=== PATIENT | female | born 1990 | race Hispanic/Latino ===

== ENCOUNTER 2020-06-27 10:52 | Emergency (ER) | payer OTHER ==
[2020-06-27 11:30] LABS: Absolute Lymphocytes (CBC) 1.2 K/uL (0.7-4.9); Basophils % 0.3 % (0-1.3); Hematocrit 38.2 % (36.0-45.0); Lymphocytes % 17.4 % (15.3-44.8); MPV 9.8 fL (7.6-11.3); RBC Red Blood Cell Count 3.97 M/uL (3.86-4.86)
[2020-06-27] MEDS ORDERED: NA CHLORIDE 0.9% 1,000 ML ONE (11:30)
[2020-06-27 11:57] LABS: Urine Blood TRACE (NEG); Urine Glucose NEGATIVE (NEG); Urine Protein NEGATIVE (NEG); Urine pH 5.5 (5.0-7.0)
[2020-06-27 12:01] LABS: BUN Blood Urea Nitrogen 9 mg/dL (7-18); Bicarbonate 23 mmol/L (21-32); Glucose Level 97 mg/dL (74-106); HCG, Quantitative 42999 mIU/mL (1-3); Potassium 3.6 mmol/L (3.5-5.1); Sodium Level 136 mmol/L (136-145)
[2020-06-27] MEDS ORDERED: NA CHLORIDE 0.9% 100 ML ONE (12:02)
--- NOTE | 2020-06-27 12:25 | EDPHYS ---
Physician Documentation [facility] Name: Karen Ramires Age: 29 yrs Sex: Female : 1990 Arrival Date: 06/27/2020 Time: 10:57 Bed 8 Private MD: CATERINA Physician Eric Pope HPI: 06/27 11:40 This 29 yrs old Female presents to ER via Ambulatory with complaints of bambi Dehydration-Preg Unknown Weeks. 11:40 The patient presents to the emergency department with nausea, vomiting. Onset: The bambi symptoms/episode began/occurred 3 day(s) ago. Possible causes: . The symptoms are aggravated by food , The symptoms are alleviated by nothing. The estimated gestational age is 8 weeks. Associated signs and symptoms: Pertinent positives: nausea, vomiting. 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 - Social history:: Smoking status: Patient denies any tobacco usage or history of. Smoking status: Patient denies any tobacco usage or history of. - Family history:: not pertinent. ROS: 11:40 Constitutional: Negative for fever, chills, and weight loss, Eyes: Negative for injury, bambi pain, redness, and discharge, ENT: Negative for injury, pain, and discharge, Neck: Negative for injury, pain, and swelling, Cardiovascular: Negative for chest pain, palpitations, and edema, Respiratory: Negative for shortness of breath, cough, wheezing, and pleuritic chest pain, Back: Negative for injury and pain, : Negative for injury, bleeding, discharge, and swelling, MS/Extremity: Negative for injury and deformity, Skin: Negative for injury, rash, and discoloration, Neuro: Negative for headache, weakness, numbness, tingling, and seizure, Psych: Negative for depression, anxiety, suicide ideation, homicidal ideation, and hallucinations, Allergy/Immunology: Negative for hives, rash, and allergies, Endocrine: Negative for neck swelling, polydipsia, polyuria, polyphagia, and marked weight changes, Hematologic/Lymphatic: Negative for swollen nodes, abnormal bleeding, and unusual bruising. 11:40 Abdomen/GI: Positive for nausea and vomiting. Exam: 11:40 Constitutional: This is a well developed, well nourished patient who is awake, alert, bambi and in no acute distress. Head/Face: Normocephalic, atraumatic. Eyes: Pupils equal round and reactive to light, extra-ocular motions intact. Lids and lashes normal. Conjunctiva and sclera are non-icteric and not injected. Cornea within normal limits. Periorbital areas with no swelling, redness, or edema. ENT: Nares patent. No nasal discharge, no septal abnormalities noted. Tympanic membranes are normal and external auditory canals are clear. Oropharynx with no redness, swelling, or masses, exudates, or evidence of obstruction, uvula midline. Mucous membranes moist. Neck: Trachea midline, no thyromegaly or masses palpated, and no cervical lymphadenopathy. Supple, full range of motion without nuchal rigidity, or vertebral point tenderness. No Meningismus. Chest/axilla: Normal chest wall appearance and motion. Nontender with no deformity. No lesions are appreciated. Cardiovascular: Regular rate and rhythm with a normal S1 and S2. No gallops, murmurs, or rubs. Normal PMI, no JVD. No pulse deficits. Respiratory: Lungs have equal breath sounds bilaterally, clear to auscultation and percussion. No rales, rhonchi or wheezes noted. No increased work of breathing, no retractions or nasal flaring. Abdomen/GI: Soft, non-tender, with normal bowel sounds. No distension or tympany. No guarding or rebound. No evidence of tenderness throughout. Back: No spinal tenderness. No costovertebral tenderness. Full range of motion. Skin: Warm, dry with normal turgor. Normal color with no rashes, no lesions, and no evidence of cellulitis. MS/ Extremity: Pulses equal, no cyanosis. Neurovascular intact. Full, normal range of motion. Neuro: Awake and alert, GCS 15, oriented to person, place, time, and situation. Cranial nerves II-XII grossly intact. Motor strength 5/5 in all extremities. Sensory grossly intact. Cerebellar exam normal. Normal gait. Psych: Awake, alert, with orientation to person, place and time. Behavior, mood, and affect are within normal limits. Vital Signs: 11:04 BP 129 / 98; Pulse 69; Resp 16; Temp 98.1(TE); Pulse Ox 100% on R/A; Height 5 ft. 3 in. ss (160.02 cm); Pain 4/10; 11:13 BP 116 / 71; Pulse 101; Resp 16; Temp 98.5(TE); Pulse Ox 100% on R/A; dh3 12:24 BP 101 / 53; Pulse 91; Resp 15; Pulse Ox 99% on R/A; hb 13:16 BP 99 / 57; Pulse 81; Resp 15; Pulse Ox 99% on R/A; hb MDM: 11:05 Patient medically screened. [facility] 11:42 Differential diagnosis: gastritis, viral gastroenteritis, gastroenteritis, Data bambi reviewed: vital signs, nurses notes, lab test result(s), radiologic studies, ultrasound. Data interpreted: alarm security or surveillance monitor: rate is 101 beats/min, rhythm is regular. Counseling: I had a detailed discussion with the patient and/or guardian regarding: the historical points, exam findings, and any diagnostic results supporting the discharge/admit diagnosis, lab results, radiology results, the need for outpatient follow up, for definitive care, an OB/Gyne specialist. 06/27 11:10 Order name: Quantitative Hcg; Complete Time: 12: [facility] 06/27 11:10 Order name: Abo/rh Typing; Complete Time: 12: [facility] 06/27 11:10 Order name: Basic Metabolic Panel; Complete Time: 12: [facility] 06/27 11:10 Order name: CBC with Diff; Complete Time: 12: [facility] 06/27 11:54 Order name: Urine Dipstick--Ancillary (enter results) formerly [facility] 06/27 11:54 Order name: Urine --Ancillary (enter results) formerly [facility] 06/27 11:10 Order name: Urine Test (obtain specimen); Complete Time: : [facility] 06/27 11:10 Order name: IV Saline Lock; Complete Time: : [facility] 06/27 11:10 Order name: Labs collected and sent; Complete Time: : [facility] 06/27 11:10 Order name: NPO; Complete Time: : [facility] 06/27 11:10 Order name: US Transvaginal Ob [facility] 06/27 11:57 Order name: Urine --Ancillary [facility] 06/27 11:10 Order name: Urine Dipstick-Ancillary (obtain specimen); Complete Time: 11:21 [facility] Administered Medications: 11:21 Drug: NS 0.9% 1000 ml Route: IV; Rate: 1 bolus; Site: left antecubital; hb 12:35 Follow up: Response: No adverse reaction hb 11:47 Drug: NS 0.9% 1000 ml Route: IV; Rate: 1 bolus; Site: left antecubital; hb 13:01 Follow up: Response: No adverse reaction; IV Status: Completed infusion; IV Intake: hb 1000ml Disposition: 06/27/20 12:24 Discharged to Home. Impression: Vomiting, related conditions, unspecified, first trimester, Volume depletion. - Condition is Stable. - Discharge Instructions: Hyperemesis Gravidarum, First Trimester of , [id number], First Trimester of , Pelvic Rest. - Prescriptions for Diclegis 10- 10 mg Oral tablet,delayed release (DR/EC) - take 1 tablet by ORAL route 3 times per day and 2 tablets at bedtime; 60 tablet. Vitamin 27- 0.8 mg Oral Tablet - take 1 tablet by ORAL route once daily; 30 tablet. Zofran 4 mg Oral Tablet - take 1 tablet by ORAL route every 12 hours As needed; 20 tablet. - Medication Reconciliation Form, Thank You Letter, Antibiotic Education, Prescription Opioid Use, Work release form form. - Follow up: Private Physician; When: 2 - 3 days; Reason: Recheck today's complaints, Continuance of care, Re-evaluation by your physician. Follow up: Serg Miguel MD; When: 2 - 3 days; Reason: Recheck today's complaints, Re-evaluation by your physician. - Problem is new. - Symptoms have improved. Signatures: Dispatcher [employer] [facility] Eric Pope MD MD cha Smirch, Shelby, RN RN ss Baxter, Heather, RN RN Corrections: (The following items were deleted from the chart) 13:34 12:24 06/27/2020 12:24 Discharged to Home. Impression: Vomiting; related hb conditions, unspecified, first trimester; Volume depletion. Condition is Stable. Discharge Instructions: First Trimester of , [id number], First Trimester of , Pelvic Rest. Prescriptions for Diclegis 10-10 mg Oral tablet,delayed release (DR/EC) - take 1 tablet by ORAL route 3 times per day and 2 tablets at bedtime; 60 tablet, Vitamin 27-0.8 mg Oral Tablet - take 1 tablet by ORAL route once daily; 30 tablet, Zofran 4 mg Oral Tablet - take 1 tablet by ORAL route every 12 hours As needed; 20 tablet. and Forms are Medication Reconciliation Form, Thank You Letter, Antibiotic Education, Prescription Opioid Use. Follow up: Private Physician; When: 2 - 3 days; Reason: Recheck today's complaints, Continuance of care, Re-evaluation by your physician. Follow up: Serg Miguel; When: 2 - 3 days; Reason: Recheck today's complaints, Re-evaluation by your physician. Problem is new. Symptoms have improved. bambi
--- NOTE | 2020-06-27 12:25 | ER ---
Nurse's Notes [facility] Name: Karen Ramires Age: 29 yrs Sex: Female : 1990 Arrival Date: 06/27/2020 Time: 10:57 Bed 8 Private MD: Diagnosis: Vomiting; related conditions, unspecified, first trimester;Volume depletion Presentation: 06/27 11:04 Chief complaint: Patient states: + UPT on 06/02/20. Pt does not have an OB appointment ss until Monday, but believes she may be dehydrated. C/o N/V that began 1 week ago. LMP 01/19/21. Coronavirus screen: Client denies travel out of the [place] in the last 14 days. Ebola Screen: Patient denies exposure to infectious person. Patient denies travel to an Ebola-affected area in the 21 days before illness onset. Initial Sepsis Screen: Does the patient meet any 2 criteria? No. Patient's initial sepsis screen is negative. Does the patient have a suspected source of infection? No. Patient's initial sepsis screen is negative. Risk Assessment: Do you want to hurt yourself or someone else? Patient reports no desire to harm self or others. Onset of symptoms is unknown. 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 - Social history:: Smoking status: Patient denies any tobacco usage or history of. Smoking status: Patient denies any tobacco usage or history of. - Family history:: not pertinent. Screenin:03 Abuse screen: Denies threats or abuse. Denies injuries from another. Nutritional hb screening: No deficits noted. Tuberculosis screening: No symptoms or risk factors identified. Fall Risk None identified. Assessment: 11:10 Reassessment: Patient ambulated with steady gait to restroom to obtain urine specimen. ss 11:22 General: Appears in no apparent distress. Behavior is calm, cooperative. Pain: Denies hb pain. Neuro: Level of Consciousness is awake, alert, obeys commands, Oriented to person, place, time, situation. Cardiovascular: Capillary refill < 3 seconds Patient's skin is warm and dry. Respiratory: Respiratory effort is even, unlabored, Respiratory pattern is regular, symmetrical. GI: Reports nausea, vomiting. : No signs and/or symptoms were reported regarding the genitourinary system. EENT: No signs and/or symptoms were reported regarding the EENT system. Derm: Skin is pink, warm \T\ dry. Musculoskeletal: No signs and/or symptoms reported regarding the musculoskeletal system. 12:24 Reassessment: Patient appears in no apparent distress at this time. Patient and/or hb family updated on plan of care and expected duration. Pain level reassessed. Patient is alert, oriented x 3, equal unlabored respirations, skin warm/dry/pink. 12:42 Reassessment: Discharge ordered, awaiting US results at this time. hb 13:15 Reassessment: Patient appears in no apparent distress at this time. Patient and/or hb family updated on plan of care and expected duration. Pain level reassessed. Patient is alert, oriented x 3, equal unlabored respirations, skin warm/dry/pink. Vital Signs: 11:04 BP 129 / 98; Pulse 69; Resp 16; Temp 98.1(TE); Pulse Ox 100% on R/A; Height 5 ft. 3 in. ss (160.02 cm); Pain 4/10; 11:13 BP 116 / 71; Pulse 101; Resp 16; Temp 98.5(TE); Pulse Ox 100% on R/A; dh3 12:24 BP 101 / 53; Pulse 91; Resp 15; Pulse Ox 99% on R/A; hb 13:16 BP 99 / 57; Pulse 81; Resp 15; Pulse Ox 99% on R/A; hb ED Course: 10:57 Patient arrived in ED. ds1 11:02 Amber Pena, RN is Primary Nurse. hb 11:03 Arm band placed on. hb 11:05 Eric Pope MD is Attending Physician. bambi 11:09 Triage completed. ss 11:18 Initial lab(s) drawn, by me, sent to lab. Inserted saline lock: 22 gauge in left dh3 antecubital area, using aseptic technique. Blood collected. 11:22 Patient has correct armband on for positive identification. Bed in low position. Call hb light in reach. Side rails up X 1. 11:56 Radiology exam delayed due to test not completed at this time. sg3 12:24 Serg Miguel MD is Referral Physician. [facility] 12:39 Transvaginal Ob In Process Unspecified. EDMS Administered Medications: 11:21 Drug: NS 0.9% 1000 ml Route: IV; Rate: 1 bolus; Site: left antecubital; hb 12:35 Follow up: Response: No adverse reaction hb 11:47 Drug: NS 0.9% 1000 ml Route: IV; Rate: 1 bolus; Site: left antecubital; hb 13:01 Follow up: Response: No adverse reaction; IV Status: Completed infusion; IV Intake: hb 1000ml Intake: 13:01 IV: 1000ml; Total: 1000ml. hb Outcome: 12:24 Discharge ordered by . [facility] 13:34 Patient left the ED. hb Signatures: Dispatcher [employer] EDMS Eric Pope MD MD cha Sanford, Demi ds1 Katie Hawkins RN RN Amber Bowen RN RN Gabrielle Simms 3 Francisca King 3
--- NOTE | 2020-06-27 13:14 | RAD REPORT ---
EXAM DESCRIPTION: US - Transvaginal OB - 06/27/2020 12:39 pm CLINICAL HISTORY: ABD CRAMPING, COMPARISON: No comparisons FINDINGS: A single gestational sac is seen within the uterus. The shape of the sac is within normal limits for gestational age. Within the sac is a single pole with crown-rump length of 8 mm, cor relating to estimated gestational age of 6 weeks 6 days. Estimated date of delivery is 02/14/2021. Heart rate is 141 BPM. The placenta is not yet developed due to early gestational age. The maternal adnexa and ovaries are within normal limits. Normal Doppler blood flow was demonstrated to both ovaries. IMPRESSION: Single live early intrauterine gestation with estimated gestational age of 6 weeks 6 day s, TELMA 02/14/2021. No unusual or unexpected finding.
== END 2020-06-27 13:34 | disposition home or self-care (01) ==
LOC: ER 10:52
DX: O99.281 Endocrine, nutritional and metabolic diseases complicating pregnancy, first trimester (principal); E86.9 Volume depletion, unspecified; Z3A.01 Less than 8 weeks gestation of pregnancy
CPT/HCPCS: 85025; 80048; 36415; 86900; 81025; 86901; 84702; 81003; 76817; 96360; 99284; J7030

== ENCOUNTER 2020-07-20 14:12 | Emergency (ER) | payer OTHER ==
--- OUTSIDE RECORDS SUMMARY | 2020-07-20 14:14 | XMS REPORT | Continuity of Care Document ---
:1990 Author Organization [facility] t Address [address] [place] [address] Care Team Providers Name Role Phone UNKNOWN Primary Care Physician Unavailable [facility] Attending Clinician Unavailable Payers Payer Name Policy Type Policy Number Effective Date Expiration Date S ource Problems Condition Condition Condition Status Onset Resolution Last Treating Co mments Source Name Details Category Date Date Treatment Clinician Date Irregular Diagnosis Active 2019-11-16 Memoria menstruati 02:46:10 l on, [place] unspecifie Irregular d menstruati on, unspecifie d Active Diagnosis 11/16/2019 Milton Harvey Dizziness Diagnosis Active 2019-11-16 Memoria 02:46:10 l Har[place] Dizziness Active Diagnosis 11/16/2019 Milton Rodler Positive Diagnosis Active 2019-08-07 M emoria 02:46:07 l test Positive Jeremy n test Active Diagnosis 08/07/2019 Milton Harvey Problem Active 2019-05-31 Me moria with 03:46:56 l inconclusi Jeremy n ve viability, with single or inconclusi unspecifie ve d fetus viability, single or unspecifie d fetus Active Problem 05/31/2019 Milton Harvey Missed ab Problem Active 2019-08-07 Me moria 02:48:38 l Missed [place] ab Active Problem 0 Milton Schettler Encounter Diagnosis Active 2019-05-31 Memoria for 03:45:59 l Har[place] screening Encounter for for Streptococ cus B screening for Streptococ cus B Active Diagnosis 05/31/2019 Milton Harvey Cervical Diagnosis Active 2019-05-31 Marvin maldonadoriblossom cancer 03:45:59 l screening Cervical Her smith cancer screening Active Diagnosis 05/31/2019 Milton Harvey Encounter Diagnosis Active 2019-05-31 Memoria for 03:45:59 l screening [place]ley examinatio Encounter n for for sexually screening transmitte examinatio d disease n for sexually transmitte d disease Active Diagnosis 05/31/2019 Milton Harvey Problem Active [facility] [place] [facility] Missed Missed Problem Active [facility] [place] [facility] Allergies, Adverse Reactions, Alerts Allergy Allergy Status Severity Reaction(s) Onset Inactive Treating Comm ents Source Name Type Date Date Clinician N.K.D.A. N.K.D.A. Active Info Not 2020- Ray morgan Available 09-05 l 00:00: [place] 00 No Known DA Active U 2020-0 [facility]- [place] s 00:00: [address] No Known DA Active U 2020-0 [facility] All[facility]ie 05-02 [place] s 00:00: [address] Social History Smoking Status Start Date Stop Date Source Never smoker [facility] Medications Ordered Filled Start Stop Current Ordering Indication Dosage Frequency Signature Comments Components Source Medication Medication Date Date Medication? Clinician (SIG) Name Name Provida OB 2020-0 Yes Milton G 1 capsule Memoria 05-28 [place] l 00:00: [place] 00 Provida OB Provida OB Yes [facility] [place] [facility] Vital Signs Vital Name Observation Time Observation Value Comments Source Weight 2019-09-06 [facility] Jeremy n 15:45:00 Height 2019-09-06 [facility] Jeremy n 15:45:00 Temperature Oral 2019-09-06 97.9 F [facility] rmann (F) 15:45:00 Diastolic (mm Hg) 2019-09-06 [facility] H ermann 15:45:00 Systolic (mm Hg) 2019-09-06 [facility] rmann 15:45:00 Weight 2019-06-25 [facility] Jeremy n 20:00:00 Height 2019-06-25 [facility] Jeremy n 20:00:00 Diastolic (mm Hg) 2019-06-25 [facility] ermann 20:00:00 Systolic (mm Hg) 2019-06-25 [facility] He rmann 20:00:00 Weight 2019-06-10 [facility] Jeremy n 14:15:00 Height 2019-06-10 [facility] Jeremy n 14:15:00 Diastolic (mm Hg) 2019-06-10 [facility] H ermann 14:15:00 Systolic (mm Hg) 2019-06-10 [facility] rmann 14:15:00 BP Systolic 2019-06-06 106 mm[Hg] Location: [facility] 09:15:00 Position: [place] [facility] BP Diastolic 2019-06-06 74 mm[Hg] Location: [facility] 09:15:00 Position: [place] [facility] Height 2019-06-06 61 [in_us] [facility] 09:15:00 [place] [facility] Weight 2019-06-06 136 [lb_av] [facility] 09:15:00 [place] [facility] Body Mass Index 2019-06-06 25.7 kg/m2 [facility] Calculated 09:15:00 [place] [facility] Heart Rate 2019-06-06 83 /min [facility] 09:15:00 [place] [facility] Weight 2019-05-21 [facility] Jeremy n 19:30:00 Height 2019-05-21 [facility] Jeremy n 19:30:00 Diastolic (mm Hg) 2019-05-21 [facility] H ermann 19:30:00 Systolic (mm Hg) 2019-05-21 [facility] rmann 19:30:00 Weight 2019-05-14 [facility] Jeremy n 21:30:00 Height 2019-05-14 [facility] Jeremy n 21:30:00 Diastolic (mm Hg) 2019-05-14 [facility] H ermann 21:30:00 Systolic (mm Hg) 2019-05-14 [facility] rmann 21:30:00 Procedures Procedure Date / Time Performed Performing Clinician Sour e [QLH] CBC (INCLUDES 2019-06-06 00:00:00 [facility] DIFF/PLT) Physicians [QLH] HEMOGLOBIN A1c 2019-06-06 00:00:00 [facility] Physicians [QLH] VITAMIN D, 2019-06-06 00:00:00 [facility] 25-HYDROXY, LC/MS/MS Physicians [LH] TSH+Free T4 2019-06-06 00:00:00 [facility] Physicians [QLH] CMP W/EGFR 2019-06-06 00:00:00 [facility] Physicians [H] Drug Screen Urine 2019-06-06 00:00:00 [facility] (9 Drugs) Physicians [QL] ABO GROUP AND RH 2019-06-06 00:00:00 [facility] TYPE Physicians [QL] ANTIBODY SCREEN, 2019-06-06 00:00:00 Unive [facility] RBC W/REFL ID, TITER Physicians AND AG Encounters Start End Encounter Admission Attending Care Care Encounter Source Date/Time Date/Time Type Type Clinicians Facility Department ID 2020-06-29 2020-06-29 Outpatient Milton Rose G [id number] eClinic 08:13:00 08:13:00 G Wes PATEL 2020-06-25 2020-06-25 Outpatient Milton Rose G [id number] eClinic 11:49:00 11:49:00 Ozzie PATEL 2019-09-19 2019-09-19 Outpatient Milton Rose G [id number] eClinic 10:03:00 10:03:00 Ozzie PATEL 2019-09-06 2019-09-06 Outpatient Milton Rose G [id number] eClinic 10:45:00 10:45:00 Ozzie PATEL 2019-07-30 2019-07-30 Outpatient Milton Rose G [id number] eClinic 11:26:00 11:26:00 Ozzie PATEL 2019-06-25 2019-06-25 Outpatient Miltonfiliberto Rose G [id number] eClinic 15:00:00 15:00:00 Ozzie PATEL 2019-06-11 2019-06-11 Outpatient MHNE MHNE [id number] MHNE 05:55:00 05:55:00 2019-06-10 2019-06-10 Outpatient Miltonmariann Rose G [id number] eClinic 09:15:00 09:15:00 G Wes PATEL 2019-06-06 2019-06-06 Appointmen [facility] Women's [id number] Univers 09:40:00 09:40:00 [facility] Brigida Borrego ans 2019-06-06 2019-06-06 Outpatient Milton Rose G [id number] eClinic 09:15:00 09:15:00 G Wes PATEL 2019-05-28 2019-05-28 Outpatient Milton Rose G [id number] eClinic 09:38:00 09:38:00 G Wes PATEL 2019-05-21 2019-05-21 Outpatient Milton Rose G [id number] eClinic 13:30:00 13:30:00 G Wes PATEL 2019-05-14 2019-05-14 Outpatient Milton Rose G [id number] eClinic 15:30:00 15:30:00 G Wes PATEL 2016-05-29 2016-05-29 Emergency E [facility] MED [id number] Medical 22:07:00 22:07:00 [facility] Results Test Description Test Time Test Comments Results Result Comments Source [[facility]] CBC (INCLUDES DIFF/PLT) 2019-06-06 11:08:01 Test Item Value Reference Range Interpretation Comme nts WBC (test code = 6690-2) 6.2 {K/CMM} 3.7-10.4 RBC; Below Low Threshold (test code = 789-8) 3.84 {M/CMM} 4.20-5.40 Hgb (test code = 718-7) 12.6 g/dl 12.0-16.0 Hct (test code = 80995-1) 37.4 % 36.0-48.0 MCV (test code = 787-2) 97.3 fL 80.0-98.0 MCH; Above High Threshold (test code = 785-6) 32.8 pg 27.0-31. 0 MCHC (test code = 786-4) 33.7 g/dl 32.0-36.0 RDW (test code = 788-0) 12.3 % 11.5-14.5 Platelet (test code = 96807-8) 247 {K/CMM} 133-450 Mean Platelet Volume; Above High Threshold (test code = 10.5 fL 7.4-10.4 45167-0) [facility] Physicians[[facility]] [id number] 11:08:01 Test Item Value Reference Range Interpretation Comments Segmented Neutrophils (test code 65.5 % 45.0-75.0 = 18056-4) Monocytes (test code = 37671-1) 9.0 % 2.0-12.0 Lymphocytes (test code = 17765-9) 22.3 % 20.0-40.0 Eosinophils (test code = 64073-2) 2.8 % 0.0-4.0 Basophils (test code = 706-2) 0.4 % 0.0-1.0 Segs-Bands # (test code = 4.1 {K/CMM} 1.5-8.1 87769-8) Lymphocytes # (test code = 1.4 {K/CMM} 1.0-5.5 47291-0) Monocytes # (test code = 45310-6) 0.6 {K/CMM} 0.0-0.8 Eosinophils # (test code = 0.2 {K/CMM} 0.0-0.5 85363-8) [facility] Physicians[H] Drug Screen Urine (9 Drugs)2019-06-06 11:08:01 Test Item Value Reference Range Interpretation Comments U Amph Scr (test code = Negative Negative 3349-8) Urine Barbiturate Negative Negative Screen (test code = 3377-9) Urine Benzodiazepine Negative Negative Screen (test code = 3390-2) Urine Cannabinoid Positive Negative A Screen; Abnormal (test code = 3427-2) Urine Cocaine Screen Negative Negative (test code = 3397-7) Urine Methadone Screen Negative Negative (test code = 3773-9) Urine Opiate Screen Negative Negative (test code = 3879-4) Urine Phencyclidine Negative Negative Screen (test code = 3936-2) Urine Propoxyphene Negative Negative Screen (test code = 14224-5) Urine Drug Screen Note See Note Drugs reported as (test code = Urine Drug posi tive have not been Screen Note) confirmed by a secondmethod an d should be used for medical purpose s only. To orderconfirm ation, contact laboratory.no te: Below are cut-o ff concentrations for all urine drugs jose manuel meraz performed in e laboratory. Martín e drugs listed in the t ablemay not be included in this panel.Desc ription C ut-off concentration-- ------- ------- ----Amp hetamine 1000 ng/mLBarbiturat es 200 ng/mLBenzodiaze pines 200 ng/mLCocaine metabolites 300 ng/mLOpiate s 300 ng/mLPhencyclid ine 25 ng/mLPropoxyphe ne 300 ng/mLMarijuana metabolites 50 ng/mLMethado ne 300 ng/mLUrine alco hol 20 mg/dL [facility]] HEMOGLOBIN [id number] 11:08:01 Test Item Value Reference Range Interpretation Comments Hemoglobin A1c (test code = 4548-4) 5.0 % <=5.6 [facility]] ABO GROUP AND RH [id number] 11:08:01 Test Item Value Reference Range Interpretation Comments OP ABORh Interp (test code = OP ABORh B POS Interp) [facility]] ANTIBODY SCREEN, RBC W/REFL ID, TITER AND AG 2019-06-06 11:08:01 Test Item Value Reference Range Interpretation Comments OP ABSC Gel Interp (test code = OP Negative ABSC Gel Interp) [facility]] CMP [id number] 11:08:01 Test Item Value Reference Range Interpretation Comments Sodium Level 139 {mEq/l} 135-145 (test code = 2951-2) Potassium Level 3.9 {mEq/l} 3.5-5.1 (test code = 2823-3) Chloride Level 105 {mEq/l} 95-109 (test code = 5-0) Carbon Dioxide 26 {mEq/l} 24-32 (test code = 2027-9) AGAP (test code = 11.9 {mEq/l} 10.0-20.0 32723-7) Glucose Lvl; 113 mg/dl 70-99 Adult reference range Above High values reflect the Threshold (test clinical selvin delinesof the code = 2345-7) [place] [employer]. Creatinine Lvl 0.70 mg/dl 0.50-1.40 (test code = 2160-0) Blood Urea 8 mg/dl 7-22 Nitrogen (test code = 3094-0) BUN/Creatinine 11 6-25 Ratio (test code = 3097-3) Total Protein 6.9 g/dl 6.4-8.4 (test code = 2885-2) Albumin Lvl (test 4.0 g/dl 3.5-5.0 code = 1751-7) Globulin (test 2.9 g/dl 2.7-4.2 code = 89721-0) A/G Ratio (test 1.4 0.7-1.6 code = 1759-0) Calcium Level 9.1 mg/dl 8.5-10.5 Total (test code = 28937-8) ALT (test code = 23 u/l 0-65 1743-4) AST (test code = 12 u/l 0-37 59381-3) Bili Total (test 0.3 mg/dl 0.2-1.3 code = 1975-2) Alk Phos (test 72 u/l 39-136 The pediatric reference code = 1783-0) ranges for is test represent a CLSI-basedtrans ference of the CALIPER kristin abase of pediatric refer ence intervals to [facility] analyzer (Clinical Biochemistry 46 (2013): 4417-0162). [facility] has not internally validated these reference ranges and therefore they should be used only in e context of a thoroughcl inical assessment. eGFR (test code = 120 The eGFR i s calculated 07192-6) {ML/MIN/1.7} using the CKD-E PI formula. In mos t young, healthyindividu als the eGFR will be >9 0 mL/min/1.73m2. The eGFR declines with a ge. AneGFR of 60-89 may be normal in some population s, particularly th e elderly, forwhom the CKD -EPI formula has not been extensively shefali idated. Use of the eGFR isnot recommended in the following populations:Ind ividuals with unstable c reatinine concentrations, including patient s and those with seri ous co-morbid conditions.Lynne ents with extremes in mus teresa mass or diet.The kristin a above are obtained fr om the National Kidney Disease Education Progr am(NKDEP) which rachael allen recommends that when the eGFR is used in patientswith ex tremes of body mass index for purposes of dmitry g dosing, the eGFR should be multiplied by t he estimated BMI. [facility][] TSH+Free [id number] 11:08:01 Test Item Value Reference Range Interpretation Comments TSH (test code = 96270-6) 1.510 {uIU/ml} 0.360-3.740 T4 Free (test code = 3024-7) 1.12 ng/dl 0.76-1.46 [facility]] VITAMIN D, 25-HYDROXY, LC/MS/[id number] 11:08:01 Test Item Value Reference Range Interpretation Comments Vitamin D, 25-OH, 24.0 ng/ml 30.0-100.0 Reference range is based Total (test code on recommen dations in the = Vitamin D, EndocrineSociet y Clinical 25-OH, Total) Practice Guide line (J Clin Endocrinol Klqkv6753;96:19 11-1930) [facility]- PREG UT [id number] 22:42:00 Patient Name: BRII LEDESMA Unit No: [id number] EXAMS: CPT CODE: [id number] US PREG UT TRANSVAGINAL [id number] R16 EXAM: Pelvic ultrasound HISTORY: APPROX 10 WEEKS ABD PAIN TECHNIQUE: Grayscale, color flow and spectral Doppler transabdominal and transvaginal ultrasound images were obtained. COMPARISON: None FINDINGS: The uterus measures 7.2 x 3.8 x 4.8 cm. An intrauterine gestational sac contains a single pole with a crown-rump length of 1.6 cm. No heart motion is detected. A yolk sac is seen. The uterus is otherwise normal in appearance. The right ovary measures 2.0 x 1.6 x 1.6 cm and the left ovary measures 2.6 x 2.0 x 2.2 cm. Normal ovarian blood flow is seen bilaterally. No pelvic fluid collection.IMPRESSION: Single intrauterine at 8 weeks 0 days by crown-rump length; however, no heart motion is detected. Correlate with serial beta hCG and follow-up pelvic ultrasound as indicated. at 2242 Reported and signed by: Kyle Yanes MD CC: Mer Rosado REED CLEANER; Princess López Technologist: Olga Vivar RDMS Trnscrbd D/ (2241) [email or web address] Probe: [id number] Orig Print D/T: S: 06/04/2019 (2244) Probe: ERIK Nieto NAME: [id number] PHYS: Mer Loza [place], [place] [address] : 1990 AGE: 28 SEX: F LOC: B.ERS PHONE #: [phone] EXAM DATE: 06/04/2019 STATUS: REG ER FAX #: [phone] RAD NO: Page 1 Signed ReportHCG [id number] 21:59:00 Test Item Value Reference Range Interpretation Comments HCG SERUM (test 40314 mi-IU/ML 0-3 H HCG R ANGES DURING code = HCG) NORMAL PREGNANC YPOST LMP 3-4 WEEKS 9 - 130 M IU/ML4-5 WEEKS 75 - 2,600 MIU/ML 5-6 WEEKS 85 0 - 20,800 MIU/M L6-7 WEEKS 4,00 0 - 100,200 MIU/ ML7-12 WEEKS 11,50 0 - 289,000 MIU/ ML12-16 WEEKS 18,30 0 - 137,000 MIU/ ML16-29 WEEKS 1,40 0 - 53,000 MIU/M L 29-41 WEEKS 94 0 - 60,000 MIU/M L BASIC METABOLIC [id number] 21:43:00 Test Item Value Reference Range Interpretation Comments SODIUM (test code = 132.0 mmol/L 133-144 L NA) POTASSIUM (test code 3.6 mmol/L 3.5-5.1 N = K) CHLORIDE (test code 103 mmol/L 95-105 N = CL) CARBON DIOXIDE (test 24 mmol/L 21-32 N code = CO2) ANION GAP (test code 5.0 GAP calc 4.0-15.0 N = GAP) GLUCOSE (test code = 93 MG/DL 70-110 N GLU) BLOOD UREA NITROGEN 8 MG/DL 7-18 N (test code = BUN) CREATININE (test 0.61 MG/DL 0.55-1.30 N Results may be code = CREAT) depressed if patient is takingN-Acetylc yste ine (NAC) and Metamizole (Dipyrone). CALCIUM (test code = 8.9 MG/DL 8.5-10.1 N CA) INDEX HEMOLYSIS 1 NORMAL <10 MG 1 NORMAL (test code = Index/DL HEMINDEX) INDEX ICTERIC (test 1 NORMAL <2 MG 1 NORMAL code = ICTINDEX) Index/DL INDEX LIPEMIA (test 1 NORMAL <50 MG 1 NORMAL code = LIPINDEX) Index/DL HEPATIC FUNCTION [id number] 21:43:00 Test Item Value Reference Range Interpretation Comments TOTAL PROTEIN (test code = PROT) 7.8 G/DL 6.4-8.2 N ALBUMIN (test code = ALB) 4.0 G/DL 3.4-5.0 N BILIRUBIN TOTAL (test code = 0.29 MG/DL 0.00-1.00 N BILT) BILIRUBIN DIRECT (test code = < 0.10 MG/DL 0.00-0.30 N BILD) BILIRUBIN INDIRECT (test code = 0.29 MG/DL 0.2-1.3 N BILIND) SGOT/AST (test code = AST) 19 Unit/L 15-37 N SGPT/ALT (test code = ALT) 24 Unit/L 12-78 N ALKALINE PHOSPHATASE TOTAL (test 73 Unit/L 45-117 N code = ALKP) [id number] 21:43:00 Test Item Value Reference Range Interpretation Comments LIPASE (test code = LIP) 144 Unit/L 114-286 N BASIC METABOLIC [id number] 21:42:00 Test Item Value Reference Range Interpretation Comments SODIUM (test code = 132.0 mmol/L 133-144 L NA) POTASSIUM (test code 3.6 mmol/L 3.5-5.1 N = K) CHLORIDE (test code 103 mmol/L 95-105 N = CL) CARBON DIOXIDE (test 24 mmol/L 21-32 N code = CO2) ANION GAP (test code 5.0 GAP calc 4.0-15.0 N = GAP) GLUCOSE (test code = 93 MG/DL 70-110 N GLU) BLOOD UREA NITROGEN 8 MG/DL 7-18 N (test code = BUN) CREATININE (test 0.61 MG/DL 0.55-1.30 N Results may be code = CREAT) depressed if patient is takingN-Acetylc yste ine (NAC) and Metamizole (Dipyrone). CALCIUM (test code = 8.9 MG/DL 8.5-10.1 N CA) INDEX HEMOLYSIS 1 NORMAL <10 MG 1 NORMAL (test code = Index/DL HEMINDEX) INDEX ICTERIC (test 1 NORMAL <2 MG 1 NORMAL code = ICTINDEX) Index/DL INDEX LIPEMIA (test 1 NORMAL <50 MG 1 NORMAL code = LIPINDEX) Index/DL HEPATIC FUNCTION [id number] 21:42:00 Test Item Value Reference Range Interpretation Comments TOTAL PROTEIN (test code = PROT) G/DL 6.4-8.2 ALBUMIN (test code = ALB) 4.0 G/DL 3.4-5.0 N BILIRUBIN TOTAL (test code = MG/DL 0.00-1.00 BILT) BILIRUBIN DIRECT (test code = < 0.10 MG/DL 0.00-0.30 N BILD) BILIRUBIN INDIRECT (test code = MG/DL 0.2-1.3 BILIND) SGOT/AST (test code = AST) 19 Unit/L 15-37 N SGPT/ALT (test code = ALT) 24 Unit/L 12-78 N ALKALINE PHOSPHATASE TOTAL (test Unit/L 45-117 code = ALKP) [id number] 21:42:00 Test Item Value Reference Range Interpretation Comments LIPASE (test code = LIP) 144 Unit/L 114-286 N UA RFLX MICR CULT IF [id number] 21:36:00 Test Item Value Reference Range Interpretation Comments UA COLOR (test code = YELLOW DESCRIPT YELLOW COLU) UA APPEARANCE (test code CLEAR DESCRIPT CLEAR = APPU) UA GLUCOSE DIPSTICK (test NEGATIVE (0) mg/dL (NEG) 0 code = DGLUU) UA BILIRUBIN DIPSTICK NEGATIVE (0) mg/dL (NEG) 0 (test code = BILU) UA KETONE DIPSTICK (test 1+ (5-15 mg/dL) (NEG) 0 A code = KETU) mg/dL UA SPECIFIC GRAVITY (test 1.016 SG 1.001-1.035 code = SGU) UA BLOOD DIPSTICK (test NEGATIVE (0) mg/DL (NEG) 0 code = KEYON) UA PH DIPSTICK (test code 5.0 pH UNITS 4.6-8.0 = JEYSON) UA PROTEIN DIPSTICK (test NEGATIVE (0) mg/dL <30 (1+) code = PROU) UA UROBILINIOGEN DIPSTICK NORMAL (0) mg/dL <2.0 (1+) (test code = URO) UA NITRITE DIPSTICK (test NEGATIVE (0) SCREEN NEG code = KOREY) UA LEUKOCYTE ESTERASE 25(TR) Leuk/mcL (NEG) 0 A DIPSTICK (test code = LEUU) UA COMMENT (test code = CLEAN CATCH SPEC SpecComment COMU) Notes UA WBC (test code = WBCU) 0-3 #WBC/HPF 0-3 UA RBC (test code = RBCU) 0-3 #RBC/HPF 0-3 UA BACTERIA (test code = MANY /HPF NONE-FEW A BACU) UA SQUAMOUS CELLS (test FEW >2 /HPF NONE-SQepi code = SQU) UA MUCUS (test code = RARE /LPF NONE MUCU) UA CULTURE NEEDED? (test Crit NOTmet CULT-N/A Cult byWBC code = UACULT) Criteria Indication for culture: ABD PAINUA RFLX MICR CULT IF [id number] 21:31:00 Test Item Value Reference Range Interpretation Comments UA COLOR (test code = YELLOW DESCRIPT YELLOW COLU) UA APPEARANCE (test code CLEAR DESCRIPT CLEAR = APPU) UA GLUCOSE DIPSTICK (test NEGATIVE (0) mg/dL (NEG) 0 code = DGLUU) UA BILIRUBIN DIPSTICK NEGATIVE (0) mg/dL (NEG) 0 (test code = BILU) UA KETONE DIPSTICK (test 1+ (5-15 mg/dL) (NEG) 0 A code = KETU) mg/dL UA SPECIFIC GRAVITY (test 1.016 SG 1.001-1.035 code = SGU) UA BLOOD DIPSTICK (test NEGATIVE (0) mg/DL (NEG) 0 code = KEYON) UA PH DIPSTICK (test code 5.0 pH UNITS 4.6-8.0 = JEYSON) UA PROTEIN DIPSTICK (test NEGATIVE (0) mg/dL <30 (1+) code = PROU) UA UROBILINIOGEN DIPSTICK NORMAL (0) mg/dL <2.0 (1+) (test code = URO) UA NITRITE DIPSTICK (test NEGATIVE (0) SCREEN NEG code = KOREY) UA LEUKOCYTE ESTERASE 25(TR) Leuk/mcL (NEG) 0 A DIPSTICK (test code = LEUU) UA RBC (test code = RBCU) #RBC/HPF 0-3 Indication for culture: ABD PAINCBC W/O [id number] 21:26:00 Test Item Value Reference Range Interpretation Comments WHITE BLOOD CELL (test code = WBC) 9.4 K/mm3 4.1-12.1 N RED BLOOD CELL (test code = RBC) 3.92 M/mm3 3.8-5.5 N HEMOGLOBIN (test code = HGB) 12.8 G/DL 10.6-15.8 N HEMATOCRIT (test code = HCT) 37.2 % 31.8-47.4 N MEAN CELL VOLUME (test code = MCV) 94.9 fL 80.1-101.1 N MEAN CELL HGB (test code = MCH) 32.7 pg 25.3-35.3 N MEAN CELL HGB CONCETRATION (test 34.4 G/DL 32.7-35.1 N code = MCHC) RED CELL DISTRIBUTION WIDTH (test 11.9 % 12.2-16.4 L code = RDW) PLATELET COUNT (test code = PLT) 271 K/mm3 155-337 N MEAN PLATELET VOLUME (test code = 10.9 fL 6.8-11.2 N MPV) - US PELVIC [id number] 17:17:00 FAX: Beltran Aguilar MD Casey: [facility] St: REG FAX: Princess Laws MD [phone] Name: BRII LEDESMA FSED : 1990 Age/S: 28/F [address] [facility] Unit #: [id number] Loc: ZEE Arredondo, [id number] Phys: Beltran Aguilar MD Acct: Ricco [id number] Dis Date: Status: REG ER PHONE #: Exam Date: 05/02/2019 3987 FAX #: Reason: lower abdominal pain EXAMS: CPT CODE: [id number] US PELVIC COMPLETE [id number] EXAMINATION: - US TRANSVAGINAL NON OB, - DUP AB/PEL/SC/LTD, - US PELVIC COMPLETE. LOCATION: S17. HISTORY: Constipation, lower abdominal/RLQ pain, first trimester ultrasound, beta hCG 200. COMPARISON: None. FINDINGS: Sonographic evaluation of the pelvis was performed transabdominally through a partially distended urinary bladder and transvaginally utilizing grayscale, pulse Doppler and color flow imaging. The uterus appears unremarkable in echotexture and measures 7.8 x 3.3 x 3.7 cm. The endometrial stripe measures 25 mm in thickness. The right ovary measures 2.2 x 1.3 x 1.8 cm and appears unremarkable. The left ovary measures 3.5 x 2.3 x 2.4 cm and demonstrates 1.3 cm follicular cyst within it. Arterial and venous flow is noted within the bilateral ovaries. Small free fluid is identified in the cul-de-sac. IMPRESSION: Nonvisualization of IUP. Recommend short-term follow-up with sonography and repeat beta hCG given provided clinical history. 1.3 cm follicular cyst within left ovary with small pelvic free fluid. at 1717 Reported and signed by: Jez Sharif MD CC: Beltran Aguilar MD; Princess López MD Technologist: Kristine Alegria Trnscrd Date/Time/By: 05/02/2019 (988) : By: [email or web address] PAGE 1 Signed Report FAX: Beltran Aguilar MD Casey: [facility] St: REG FAX: Princess Laws MD [phone] Name: BRII LEDESMA FSED : 1990 Age/S: 28/F [address] [facility] Unit #: [id number] Loc: [place] [address] Phys: Beltran Aguilar MD Acct: [id number] Dis Date: Status: REG ER PHONE #: Exam Date: 05/02/2019 1716 FAX #: Reason: lower abdominal pain EXAMS: CPT CODE: [id number] US PELVICCOMPLETE [id number] <Continued> Orig Print D/T: S: 05/02/2019(9475) PAGE 2Signed Report- DUP AB/PEL/SC/[id number] 17:17:00 FAX: Beltran Aguilar MD Casey: [facility] St: REG FAX: Princess Laws MD [phone] Name: BRII LEDESMA FSED : 1990 Age/S: 28/F [address] [facility] Unit #: [id number] Loc: RiccoJose AntonioSMITH [place], [id number] Phys: Beltran Aguilar MD Acct: C [id number] Dis Date: Status: REG ER PHONE #: Exam Date: 05/02/20197 FAX #: Reason: SEE REASON ON US PREG 1ST TRMTR EXAMS: CPT CODE: [id number] DUP AB/PEL/SC/LTD 02282 EXAMINATION: - US TRANSVAGINAL NON OB, - DUP AB/PEL/SC/LTD, - US PELVIC COMPLETE. LOCATION: S17. HISTORY: Constipation, lower abdominal/RLQ pain, first trimester ultrasound, beta hCG 200. COMPARISON: None. FINDINGS: Sonographic evaluation of the pelvis was performed transabdominally through a partially distended urinary bladder and transvaginally utilizing grayscale, pulse Doppler and color flow imaging. The uterus appears unremarkable in echotexture and measures 7.8 x 3.3 x 3.7 cm. The endometrial stripe measures 25 mm in thickness. The right ovary measures 2.2 x 1.3 x 1.8 cm and appears unremarkable. The left ovary measures 3.5 x 2.3 x 2.4 cm and demonstrates 1.3 cm follicular cyst within it. Arterial and venous flow is noted within the bilateral ovaries. Small free fluid is identified in the cul-de-sac. IMPRESSION: Nonvisualization of IUP. Recommend short-term follow-up with sonography and repeat beta hCG given provided clinical history. 1.3 cm follicular cyst within left ovary with small pelvic free fluid. at 1717 Reported and signed by: Jez Sharif MD CC: Beltran Aguilar MD; Princess López MD Technologist: Kristine Alegria [facility] Date/Time/By: 05/02/2019 (171) : By: [email or web address] PAGE 1 Signed Report FAX: Beltran Aguilar MD Casey: [facility] St: REG FAX: Princess Laws MD [phone] Name: BRII LEDESMA FSED : 1990 Age/S: 28/F [address] [facility] Unit #: [id number] Loc: [place] [address] Phys: Beltran Aguilar MD Acct: [id number] Dis Date: Status: REG ER PHONE #: Exam Date: 05/02/2019 1715 FAX #: Reason: SEE REASON ON US PREG 1ST TRMTR EXAMS: CPT CODE: [id number] DUP AB/PEL/SC/LTD 35475 <Continued> Orig Print D/T: S: 05/02/2019(1993) PAGE 2Signed Report- US TRANSVAGINAL NON [id number] 17:17:00 FAX: Beltran Aguilar MD Casey: [facility] St: [facility] FAX: Princess Laws MD [phone] Name: BRII LEDESMA FSED : 1990 Age/S: 28/F [address] [facility] Unit #: [id number] Loc: PernellSMITH [place], [id number] Phys: Beltran Aguilar MD Acct: C [id number] Dis Date: Status: REG ER PHONE #: Exam Date: 05/02/2019 1714 FAX #: Reason: SEE REASON ON US PREG 1ST TRMTR EXAMS: CPT CODE: [id number] [place] [address] EXAMINATION: - US TRANSVAGINAL NON OB, - DUP AB/PEL/SC/LTD, - US PELVIC COMPLETE. LOCATION: S17. HISTORY: Constipation, lower abdominal/RLQ pain, first trimester ultrasound, beta hCG 200. COMPARISON: None. FINDINGS: Sonographic evaluation of the pelvis was performed transabdominally through a partially distended urinary bladder and transvaginally utilizing grayscale, pulse Doppler and color flow imaging. The uterus appears unremarkable in echotexture and measures 7.8 x 3.3 x 3.7 cm. The endometrial stripe measures 25 mm in thickness. The right ovary measures 2.2 x 1.3 x 1.8 cm and appears unremarkable. The left ovary measures 3.5 x 2.3 x 2.4 cm and demonstrates 1.3 cm follicular cyst within it. Arterial and venous flow is noted within the bilateral ovaries. Small free fluid is identified in the cul-de-sac. IMPRESSION: Nonvisualization of IUP. Recommend short-term follow-up with sonography and repeat beta hCG given provided clinical history. 1.3 cm follicular cyst within left ovary with small pelvic free fluid. at 1717 Reported and signed by: Jez Sharif MD CC: Beltran Aguilar MD; Princess López MD Technologist: Kristine Alegria; S#: [id number] Trnscrd Date/Time/By: 05/02/2019 (7277) : By: [email or web address] PAGE 1 Signed Report FAX: Beltran Aguilar MD Casey: [facility] St: REG FAX: Princess Laws MD [phone] Name: BALTAZARBRII FSED : 1990 Age/S: 28/F [address] [facility] Unit #: [id number] Loc: [place] [address] Phys: Beltran Aguilar MD Acct: [id number] Dis Date: Status: REG ER PHONE #: Exam Date: 05/02/2019 1710 FAX #: Reason: SEE REASON ON US PREG 1ST TRMTR EXAMS: CPT CODE: [id number] [place] [address] <Continued> Orig Print D/T: S: 05/02/2019(8398) PAGE 2Signed ReportHCG [id number] 16:52:00 Test Item Value Reference Range Interpretation Comments HCG BLOOD (test 207 mIU/mL 1-3 H Gestational Age code = HCG) hCG in mIU/mL 0 .2-week 5-50 1-2 weeks 50 -500 2-3 weeks 100-5,000 3-4 w eeks 500-10, 000 4-5 weeks 1,00 0-50,000 5-6 weeks 10,000-100,000 6-8 weeks 15,000-200,000 2-3 months 10,000-100,000 A test result that is inconsistent wi th the clinical pictur eand patient history should be interpreted wit h caution. This test is no t intended for use as a becerra rrogate marker for aidi ng in the diagnosis of mo nitoring the treatment o f cancer patients COMPREHENSIVE METABOLIC [id number] 16:26:00 Test Item Value Reference Range Interpretation Comments SODIUM (test code = 138 MMOL/L 135-147 N NA) POTASSIUM (test code 3.7 MMOL/L 3.6-5.2 N = K) CHLORIDE (test code = 100 MMOL/L 98-108 N CL) CARBON DIOXIDE (test 25 mmol/L 21-32 N code = CO2) GLUCOSE (test code = 93 mg/dL 70-110 N GLU) BLOOD UREA NITROGEN 10 MG/DL 6-21 N (test code = BUN) GLOMERULAR FILTRATION 108 >60 The es timated RATE (test code = glomerular filtration GFR) rate is compute d usingpatient ra ce, age (>18), sex, and serum creatinine. If anyof the needed data elements are mi ssing the Laboratory cannot compute an griselda mation of the glomerul ar filtration rate . CREATININE (test code 0.7 mg/dL 0.6-1.3 N = CREAT) TOTAL PROTEIN (test 8.2 g/dL 6.0-8.2 N code = PROT) ALBUMIN (test code = 4.1 G/DL 3.7-5.5 N ALB) CALCIUM (test code = 9.4 mg/dL 8.7-10.5 N CA) BILIRUBIN TOTAL (test 0.70 mg/dL 0.0-1.0 N code = BILT) SGOT/AST (test code = 14 UNITS/L 10-37 N AST) SGPT/ALT (test code = 22 UNITS/L 12-78 N ALT) ALKALINE PHOSPHATASE 79 UNITS/L 46-116 N (test code = ALKP) [id number] 16:26:00 Test Item Value Reference Range Interpretation Comments AMYLASE (test code = LISA) 38 UNITS/L 25-115 N [id number] 16:26:00 Test Item Value Reference Range Interpretation Comments LIPASE (test code = LIP) 189 UNITS/L 73-393 N URINALYSIS [id number] 16:26:00 Test Item Value Reference Range Interpretation Comments UA COLOR (test code = COLU) YELLOW YELLOW UA APPEARANCE (test code = CLEAR CLEAR APPU) UA GLUCOSE DIPSTICK (test code NEGATIVE MG/DL NEGATIVE = DGLUU) UA BILIRUBIN DIPSTICK (test NEGATIVE NEGATIVE code = BILU) UA KETONE DIPSTICK (test code 40 (2+) MG/DL NEGATIVE A = KETU) UA SPECIFIC GRAVITY (test code >=1.030 1.000-1.030 A = SGU) UA BLOOD DIPSTICK (test code = TRACE NEGATIVE A KEYON) UA PH DIPSTICK (test code = 6.0 4.5-8.5 JEYSON) UA PROTEIN DIPSTICK (test code NEGATIVE MG/DL NEGATIVE = PROU) UA UROBILINOGEN DIPSTICK (test 0.2 EU/dL <=1.0 code = URO) UA NITRITE DIPSTICK (test code NEGATIVE NEGATIVE = KOREY) UA LEUKOCYTE ESTERASE DIPSTICK NEGATIVE NEGATIVE (test code = LEUU) UA WBC (test code = WBCU) 0-3 /HPF 0-3 UA RBC (test code = RBCU) 0-3 /HPF 0-3 UA EPITHELIAL CELLS (test code MODERATE /LPF NONE-FEW A = EPIU) UA BACTERIA (test code = BACU) 1+ /HPF NEGATIVE A UA MUCUS (test code = MUCU) 2+ /LPF NONE SEEN UR HCG [id number] 16:26:00 Test Item Value Reference Range Interpretation Comments UR HCG QUAL (test code = HCGQLU) POSITIVE NEGATIVE URINALYSIS [id number] 16:23:00 Test Item Value Reference Range Interpretation Comments UA COLOR (test code = COLU) YELLOW YELLOW UA APPEARANCE (test code = CLEAR CLEAR APPU) UA GLUCOSE DIPSTICK (test code NEGATIVE MG/DL NEGATIVE = DGLUU) UA BILIRUBIN DIPSTICK (test NEGATIVE NEGATIVE code = BILU) UA KETONE DIPSTICK (test code 40 (2+) MG/DL NEGATIVE A = KETU) UA SPECIFIC GRAVITY (test code >=1.030 1.000-1.030 A = SGU) UA BLOOD DIPSTICK (test code = TRACE NEGATIVE A KEYON) UA PH DIPSTICK (test code = 6.0 4.5-8.5 JEYSON) UA PROTEIN DIPSTICK (test code NEGATIVE MG/DL NEGATIVE = PROU) UA UROBILINOGEN DIPSTICK (test 0.2 EU/dL <=1.0 code = URO) UA NITRITE DIPSTICK (test code NEGATIVE NEGATIVE = KOREY) UA LEUKOCYTE ESTERASE DIPSTICK NEGATIVE NEGATIVE (test code = LEUU) UA WBC (test code = WBCU) /HPF 0-3 UA RBC (test code = RBCU) /HPF 0-3 UA EPITHELIAL CELLS (test code /LPF NONE-FEW = EPIU) UA BACTERIA (test code = BACU) /HPF NEGATIVE UR HCG [id number] 16:23:00 Test Item Value Reference Range Interpretation Comments UR HCG QUAL (test code = HCGQLU) POSITIVE NEGATIVE COMPREHENSIVE METABOLIC [id number] 16:20:00 Test Item Value Reference Range Interpretation Comments SODIUM (test code = NA) 138 MMOL/L 135-147 N POTASSIUM (test code = K) 3.7 MMOL/L 3.6-5.2 N CHLORIDE (test code = CL) 100 MMOL/L 98-108 N CARBON DIOXIDE (test code = CO2) 25 mmol/L 21-32 N GLUCOSE (test code = GLU) 93 mg/dL 70-110 N BLOOD UREA NITROGEN (test code = MG/DL 6-21 BUN) GLOMERULAR FILTRATION RATE (test >60 code = GFR) CREATININE (test code = CREAT) mg/dL 0.6-1.3 TOTAL PROTEIN (test code = PROT) g/dL 6.0-8.2 ALBUMIN (test code = ALB) G/DL 3.7-5.5 CALCIUM (test code = CA) mg/dL 8.7-10.5 BILIRUBIN TOTAL (test code = BILT) mg/dL 0.0-1.0 SGOT/AST (test code = AST) UNITS/L 10-37 SGPT/ALT (test code = ALT) UNITS/L 12-78 ALKALINE PHOSPHATASE (test code = UNITS/L 46-116 ALKP) [id number] 16:20:00 Test Item Value Reference Range Interpretation Comments AMYLASE (test code = LISA) UNITS/L 25-115 [id number] 16:20:00 Test Item Value Reference Range Interpretation Comments LIPASE (test code = LIP) UNITS/L 73-393 URINALYSIS [id number] 16:17:00 Test Item Value Reference Range Interpretation Comments UA COLOR (test code = COLU) YELLOW YELLOW UA APPEARANCE (test code = CLEAR CLEAR APPU) UA GLUCOSE DIPSTICK (test code NEGATIVE MG/DL NEGATIVE = DGLUU) UA BILIRUBIN DIPSTICK (test NEGATIVE NEGATIVE code = BILU) UA KETONE DIPSTICK (test code 40 (2+) MG/DL NEGATIVE A = KETU) UA SPECIFIC GRAVITY (test code >=1.030 1.000-1.030 A = SGU) UA BLOOD DIPSTICK (test code = TRACE NEGATIVE A KEYON) UA PH DIPSTICK (test code = 6.0 4.5-8.5 JEYSON) UA PROTEIN DIPSTICK (test code NEGATIVE MG/DL NEGATIVE = PROU) UA UROBILINOGEN DIPSTICK (test 0.2 EU/dL <=1.0 code = URO) UA NITRITE DIPSTICK (test code NEGATIVE NEGATIVE = KOREY) UA LEUKOCYTE ESTERASE DIPSTICK NEGATIVE NEGATIVE (test code = LEUU) UA WBC (test code = WBCU) /HPF 0-3 UA RBC (test code = RBCU) /HPF 0-3 UA EPITHELIAL CELLS (test code /LPF NONE-FEW = EPIU) UA BACTERIA (test code = BACU) /HPF NEGATIVE UR HCG [id number] 16:17:00 Test Item Value Reference Range Interpretation Comments UR HCG QUAL (test code = HCGQLU) NEGATIVE CBC W/AUTO [id number] 16:12:00 Test Item Value Reference Range Interpretation Comments WHITE BLOOD CELL (test code = 6.5 x10 3/uL 5.0-12.0 N WBC) RED BLOOD CELL (test code = 4.19 x10 6/uL 4.20-5.40 L RBC) HEMOGLOBIN (test code = HGB) 13.5 g/dL 12.0-16.0 N HEMATOCRIT (test code = HCT) 40.1 % 36.0-46.0 N MEAN CELL VOLUME (test code = 96 fL 81-99 N MCV) MEAN CELL HGB (test code = MCH) 32.2 pg 27-31 H MEAN CELL HGB CONCENTRATION 33.7 g/dL 33-37 N (test code = MCHC) RED CELL DISTRIBUTION WIDTH 11.7 % 11.5-15.5 N (test code = RDW) PLATELET COUNT (test code = 297 x10 3/uL 130-400 N PLT) MEAN PLATELET VOLUME (test code 10.8 fL 9.4-16.4 N = MPV) NEUTROPHIL % (test code = NT%) 65.2 % 43-65 H IMMATURE GRANULOCYTE % (test 0.2 % 0.0-2.0 N code = IG%) LYMPHOCYTE % (test code = LY%) 23.3 % 20.5-45.5 N MONOCYTE % (test code = MO%) 8.0 % 5.5-11.7 N EOSINOPHIL % (test code = EO%) 2.8 % 0.9-2.9 N BASOPHIL % (test code = BA%) 0.5 % 0.2-1.0 N NEUTROPHIL # (test code = NT#) 4.23 x10 3/uL 2.2-4.8 N IMMATURE GRANULOCYTE # (test 0.01 x10 3/uL 0-0.03 N code = IG#) LYMPHOCYTE # (test code = LY#) 1.51 x10 3/uL 1.3-2.9 N MONOCYTE # (test code = MO#) 0.52 x10 3/uL 0.3-0.8 N EOSINOPHIL # (test code = EO#) 0.18 x10 3/uL 0.0-0.2 N BASOPHIL # (test code = BA#) 0.03 x10 3/uL 0.0-0.1 N
[2020-07-20 15:36] LABS: Urine Blood 2+ (NEG); Urine Glucose NEGATIVE (NEG); Urine Protein 1+ (NEG); Urine Specific Gravity >1.030 (1.005-1.030)
[2020-07-20] MEDS ORDERED: METOCLOPRAMIDE 10 MG/2mL INJ ONE (17:15)
[2020-07-20] MEDS ORDERED: Ringers Lactate 1,000 ML IV ONE (17:15)
[2020-07-20 17:22] LABS: Absolute Lymphocytes (CBC) 1.4 K/uL (0.7-4.9); Basophils % 0.5 % (0-1.3); Hematocrit 42.5 % (36.0-45.0); Lymphocytes % 14.7 % (15.3-44.8); MPV 10.2 fL (7.6-11.3); RBC Red Blood Cell Count 4.43 M/uL (3.86-4.86)
[2020-07-20 17:26] LABS: Urine Bacteria <20 /HPF (<20); Urine RBC <5 /HPF (NONE SEEN)
[2020-07-20 17:27] LABS: Calcium Oxalate Crystals- Ur PRESENT (NONE SEEN); Urine Mucus 2+ /HPF (NONE SEEN)
[2020-07-20 17:55] LABS: BUN Blood Urea Nitrogen 8 mg/dL (7-18); Bicarbonate 24 mmol/L (21-32); Glucose Level 86 mg/dL (74-106); HCG, Quantitative 133879 mIU/mL (1-3); Potassium 3.6 mmol/L (3.5-5.1); Sodium Level 136 mmol/L (136-145)
--- NOTE | 2020-07-20 18:03 | RAD REPORT ---
EXAM DESCRIPTION: US - OB Limited - 07/20/2020 5:52 pm CLINICAL HISTORY: with pelvic pain COMPARISON: June 2020 FINDINGS: The uterus measures 9 x 6 5 centimeters. A normal appearing gestational sac is present wi thin the endometrium. Within this is a yolk sac and pole with a crown-rump length 3.8 centimete rs. Cardiac activity 160 beats per minute The right ovary is normal size echotexture. Left ovary was not seen secondary overlying bowel gas. . Right and left adnexa unremarkable No significant free fluid is seen. IMPRESSION: Single live intrauterine with an estimated gestational age 10 weeks 3 days ED D 02/13/2020 If a survey is desired it should performed in approximately 8 weeks
--- NOTE | 2020-07-20 18:17 | EDPHYS ---
Physician Documentation [facility] Name: Karen Ramires Age: 29 yrs Sex: Female : 1990 Arrival Date: 07/20/2020 Time: 14:15 Bed 15 Private MD: ED Physician Deangelo Garcia HPI: 07/20 17:12 This 29 yrs old Female presents to ER via Ambulatory with complaints of 10 Wks jr8 Preg - Dark Discharge. 17:12 Patient stated that she has had n/v for 4 days now despite her zofran and promethazine jr8 at home. Stated that yesterday started with brown discharge and lower abdominal cramping as well. Denies spotting or bleeding . Severity of symptoms: At their worst the symptoms were moderate in the emergency department the symptoms are unchanged. The patient has not experienced similar symptoms in the past. The patient has not recently seen a physician. Historical: - Allergies: 14:47 No Known Allergies; ll1 - PMHx: 14:47 None; ll1 - PSHx: 14:47 D \T\ C; ll1 - Immunization history:: Flu vaccine is not up to date. - Social history:: Smoking status: Patient denies any tobacco usage or history of. ROS: 17:12 Eyes: Negative for injury, pain, redness, and discharge, ENT: Negative for injury, jr8 pain, and discharge, Neck: Negative for injury, pain, and swelling, Cardiovascular: Negative for chest pain, palpitations, and edema, Respiratory: Negative for shortness of breath, cough, wheezing, and pleuritic chest pain, Back: Negative for injury and pain, MS/Extremity: Negative for injury and deformity, Skin: Negative for injury, rash, and discoloration, Neuro: Negative for headache, weakness, numbness, tingling, and seizure. 17:12 Abdomen/GI: Positive for nausea and vomiting, abdominal cramps. 17:12 : Positive for vaginal discharge, Negative for urinary symptoms, pelvic pain, flank pain, burning with urination. Exam: 17:12 Constitutional: This is a well developed, well nourished patient who is awake, alert, jr8 and in no acute distress. ENT: Nares patent. No nasal discharge, no septal abnormalities noted. Tympanic membranes are normal and external auditory canals are clear. Oropharynx with no redness, swelling, or masses, exudates, or evidence of obstruction, uvula midline. Mucous membranes moist. Cardiovascular: Regular rate and rhythm with a normal S1 and S2. No gallops, murmurs, or rubs. Normal PMI, no JVD. No pulse deficits. Respiratory: Lungs have equal breath sounds bilaterally, clear to auscultation and percussion. No rales, rhonchi or wheezes noted. No increased work of breathing, no retractions or nasal flaring. Abdomen/GI: Soft, non-tender, with normal bowel sounds. No distension or tympany. No guarding or rebound. No evidence of tenderness throughout. Back: No spinal tenderness. No costovertebral tenderness. Full range of motion. Skin: Warm, dry with normal turgor. Normal color with no rashes, no lesions, and no evidence of cellulitis. MS/ Extremity: Pulses equal, no cyanosis. Neurovascular intact. Full, normal range of motion. Neuro: Awake and alert, GCS 15, oriented to person, place, time, and situation. Cranial nerves II-XII grossly intact. Motor strength 5/5 in all extremities. Sensory grossly intact. Cerebellar exam normal. Normal gait. Vital Signs: 14:44 BP 100 / 68; Pulse 85; Resp 16; Temp 97.3; Pulse Ox 100% ; Weight 54.88 kg; Height 5 ll1 ft. 2 in. (157.48 cm); Pain 0/10; 18:00 BP 101 / 64; Pulse 89; Resp 15 S; Pulse Ox 100% on R/A; jl7 14:44 Body Mass Index 22.13 (54.88 kg, 157.48 cm) ll1 MDM: 16:41 Patient medically screened. jr8 18:15 Data reviewed: vital signs, nurses notes, lab test result(s), radiologic studies, jr8 ultrasound. Data interpreted: Pulse oximetry: on room air is 100 %. Interpretation: normal. Counseling: I had a detailed discussion with the patient and/or guardian regarding: the historical points, exam findings, and any diagnostic results supporting the discharge/admit diagnosis, lab results, radiology results, the need for outpatient follow up, an OB/Gyne specialist, to return to the emergency department if symptoms worsen or persist or if there are any questions or concerns that arise at home. Response to treatment: the patient's symptoms have markedly improved after treatment, patient is well hydrated. 07/20 15:12 Order name: Urine Dipstick--Ancillary (enter results); Complete Time: 16:41 bd 07/20 15:12 Order name: Urine --Ancillary (enter results); Complete Time: 16:41 bd 07/20 16:50 Order name: Urine Microscopic Only [facility] 07/20 16:50 Order name: Quantitative Hcg [facility] 07/20 16:50 Order name: Abo/rh Typing [facility] 07/20 16:50 Order name: Basic Metabolic Panel [facility] 07/20 16:50 Order name: IV; Complete Time: 17:22 [facility] 07/20 16:50 Order name: CBC with Diff; Complete Time: 17:35 [facility] 07/20 16:50 Order name: OB Limited US; Complete Time: 18:19 [facility] 07/20 16:51 Order name: Urine Microscopic Only; Complete Time: 17:35 EDMS 07/20 16:51 Order name: HCG, Quantitative; Complete Time: 17:56 EDMS 07/20 16:51 Order name: Basic Metabolic Panel; Complete Time: 17:56 EDTX 07/20 16:50 Order name: Labs collected and sent; Complete Time: 17:22 [facility] 07/20 16:50 Order name: NPO; Complete Time: 17:22 [facility] 07/20 16:50 Order name: Urine Dipstick-Ancillary (obtain specimen); Complete Time: 17:22 [facility] Administered Medications: 17:00 Drug: Ringers - Lactated Ringers Solution 1000 ml Route: IV; Rate: bolus; Site: right jl7 antecubital; 18:11 Follow up: Response: No adverse reaction; IV Status: Completed infusion; IV Intake: jl7 1000ml 17:01 Drug: Reglan 10 mg Route: IVP; Site: right antecubital; jl7 18:12 Follow up: Response: No adverse reaction; Nausea is decreased jl7 Disposition: 18:36 Co-signature as Attending Physician, Deangelo Garcia MD. rn Disposition: 07/20/20 18:16 Discharged to Home. Impression: 10 weeks gestation of , Nausea and vomiting. - Condition is Stable. - Discharge Instructions: Nausea, Adult. - Prescriptions for Reglan 10 mg Oral Tablet - take 1 tablet by ORAL route every 6 hours As needed; 30 tablet. - Medication Reconciliation Form, Thank You Letter, Antibiotic Education, Prescription Opioid Use form. - Follow up: Private Physician; When: 1 week; Reason: Recheck today's complaints, Continuance of care, Re-evaluation by your physician. - Problem is new. - Symptoms have improved. Signatures: Dispatcher [employer] EDMS Deangelo Garcia MD MD rn Roszak, Josh, PA PA jr8 Prerna Hines RN RN jl7 Jeremy Lerma RN RN ll1 Corrections: (The following items were deleted from the chart) 18:30 18:16 07/20/2020 18:16 Discharged to Home. Impression: 10 weeks gestation of ; jl7 Nausea and vomiting. Condition is Stable. Forms are Medication Reconciliation Form, Thank You Letter, Antibiotic Education, Prescription Opioid Use. Follow up: Private Physician; When: 1 week; Reason: Recheck today's complaints, Continuance of care, Re-evaluation by your physician. Problem is new. Symptoms have improved. jr8
--- NOTE | 2020-07-20 18:17 | ER ---
Nurse's Notes [facility] Name: Karen Ramires Age: 29 yrs Sex: Female : 1990 Arrival Date: 07/20/2020 Time: 14:15 Bed 15 Private MD: Diagnosis: 10 weeks gestation of ;Nausea and vomiting Presentation: 07/20 14:44 Chief complaint: Patient states: Approximately 10 weeks . G2, P0. 1. Has had ll1 N/V for 3 days. 2. Brown vaginal discharge for 1 day. Cramping last night, better now. Coronavirus screen: Client denies travel out of the [place] in the last 14 days. At this time, the client does not indicate any symptoms associated with coronavirus-19. Ebola Screen: Patient denies travel to an Ebola-affected area in the 21 days before illness onset. Initial Sepsis Screen: Does the patient meet any 2 criteria? No. Patient's initial sepsis screen is negative. Does the patient have a suspected source of infection? Yes: Other: vag discharge. Risk Assessment: Do you want to hurt yourself or someone else? Patient reports no desire to harm self or others. Onset of symptoms was July 18, 2020. 14:44 Method Of Arrival: Ambulatory ll1 14:44 Acuity: FELICITA 3 ll1 Historical: - Allergies: 14:47 No Known Allergies; ll1 - PMHx: 14:47 None; ll1 - PSHx: 14:47 D \T\ C; ll1 - Immunization history:: Flu vaccine is not up to date. - Social history:: Smoking status: Patient denies any tobacco usage or history of. Screenin:00 Abuse screen: Denies threats or abuse. Denies injuries from another. Nutritional jl7 screening: No deficits noted. Tuberculosis screening: No symptoms or risk factors identified. Fall Risk IV access (20 points). Total Palumbo Fall Scale indicates No Risk (0-24 pts). Assessment: 16:30 General: Appears in no apparent distress. uncomfortable, Behavior is calm, cooperative, jl7 appropriate for age. Pain: Complains of pain in right lower quadrant and left lower quadrant. Neuro: Level of Consciousness is awake, alert, obeys commands, Oriented to person, place, time, situation. Cardiovascular: Patient's skin is warm and dry. Respiratory: Airway is patent Respiratory effort is even, unlabored, Respiratory pattern is regular, symmetrical. : Reports cramping, vaginal bleeding that is brown. Derm: Skin is pink, warm \T\ dry. 17:30 Reassessment: Patient appears in no apparent distress at this time. Patient and/or jl7 family updated on plan of care and expected duration. Pain level reassessed. Patient is alert, oriented x 3, equal unlabored respirations, skin warm/dry/pink. Patient states feeling better. 18:14 Reassessment: JORGE Nelson at bedside discussing results and POC. jl7 Vital Signs: 14:44 BP 100 / 68; Pulse 85; Resp 16; Temp 97.3; Pulse Ox 100% ; Weight 54.88 kg; Height 5 ll1 ft. 2 in. (157.48 cm); Pain 0/10; 18:00 BP 101 / 64; Pulse 89; Resp 15 S; Pulse Ox 100% on R/A; jl7 14:44 Body Mass Index 22.13 (54.88 kg, 157.48 cm) ll1 ED Course: 14:15 Patient arrived in ED. ds1 14:47 Triage completed. ll1 14:47 Arm band placed on. ll1 15:00 urine collection ok'd by Dr. Garcia. ll1 16:40 Omar Fonseca PA is PHCP. jr8 16:40 Deangelo Garcia MD is Attending Physician. jr8 16:46 Prerna Hines, PATRICIA is Primary Nurse. jl7 17:00 Patient has correct armband on for positive identification. Placed in gown. Bed in low jl7 position. Call light in reach. Side rails up X 1. Pulse ox on. NIBP on. Warm blanket given. 17:00 No provider procedures requiring assistance completed. Initial lab(s) drawn, by johnson arroyo sent to lab. Inserted saline lock: 20 gauge in right antecubital area, using aseptic technique. Blood collected. 17:52 OB Limited US In Process Unspecified. EDMS 18:21 IV discontinued, intact, bleeding controlled, No redness/swelling at site. Pressure jl7 dressing applied. Administered Medications: 17:00 Drug: Ringers - Lactated Ringers Solution 1000 ml Route: IV; Rate: bolus; Site: right jl7 antecubital; 18:11 Follow up: Response: No adverse reaction; IV Status: Completed infusion; IV Intake: jl7 1000ml 17:01 Drug: Reglan 10 mg Route: IVP; Site: right antecubital; jl7 18:12 Follow up: Response: No adverse reaction; Nausea is decreased jl7 Intake: 18:11 IV: 1000ml; Total: 1000ml. jl7 Outcome: 18:16 Discharge ordered by . vida 18:21 Discharged to home ambulatory. jl7 18:21 Condition: stable 18:21 Discharge instructions given to patient, Instructed on discharge instructions, follow up and referral plans. medication usage, Demonstrated understanding of instructions, follow-up care, medications, Prescriptions given X 1. 18:30 Patient left the ED. jl7 Signatures: Dispatcher [employer] [facility] Aviva Wolfe dsOmar Silver PA PA jrPrerna Grove RN RN jl7 Jeremy Lerma RN RN ll1
[2020-07-20 18:35] VITALS: TEMP 97.3; O2SAT 100
[2020-07-20 18:36] VITALS: BP 101/64
== END 2020-07-20 18:30 | disposition home or self-care (01) ==
LOC: ER 14:12
DX: O26.891 Other specified pregnancy related conditions, first trimester (principal); R11.2 Nausea with vomiting, unspecified
CPT/HCPCS: 85025; 80048; 36415; 86900; 81025; 86901; 84702; 76815; J2765; J7120; 81003; 81015; 96365; 96375; 99284